=== PATIENT | female | born 2000 | race Caucasian/White ===

== ENCOUNTER 2025-05-03 13:17 | Emergency (ER) | payer BC, OTHER, SELFPAY ==
--- NOTE | ~2025-05-03 | CT_ITS ---
EXAMINATION: CT HEAD WITHOUT CONTRAST CLINICAL INFORMATION: Left facial numbness COMPARISON: None available. TECHNIQUE: Contiguous axial imaging was performed from the skull base to vertex without intravenous administration of contrast. This CT examination was performed using dose optimization techniques as appropriate, variously including the following: *Automated exposure control *Adjustment of mA and/or kV according to patient size (this includes techniques or standardized protocols for targeted exams where dose is matched to indication/reason for exam; i.e. extremities or head) *Use of iterative reconstruction technique DLP: 574 mGY*cm FINDINGS: There is no acute ischemic change. There is no intracranial hemorrhage. There is no mass-effect or midline shift. Basal cisterns and ventricles are within normal limits for age/cerebral volume. Orbits are symmetrical and unremarkable. Paranasal sinuses and mastoid air cells are pneumatized. There are no bony abnormalities. CT/CT head/brain wo IV con IMPRESSION: No acute intracranial abnormality. Electronically signed by: Brennen Sood MD 05/03/2025 03:13 PM EDT
--- NOTE | 2025-05-03 13:23 | ED_ITS ---
HPI - General Adult General Chief complaint: General Medical Stated complaint: states sudden numbness on L side of face Time Seen by Provider: 05/03/25 14:10 Source: patient Mode of arrival: ambulatory Limitations: no limitations History of Present Illness HPI narrative: This is a this is a very pleasant 25 years old the patient presented to the emergency department complaining of left facial numbness symptoms are now resolved of numbness up in about 2 hours ago she is feeling better now she has no headache she is ambulatory to the emergency department. She has no risk factor for cardiovascular disease. She does have history of anxiety disorder Onset (ago): hour(s) (2) Location: face (left) Radiation: non-radiation Severity: mild Pain Consistency: now resolved Relieving factors: none Exacerbating factors: none Associated symptoms: denies other symptoms Related Data Home Medications ?Medication ?Instructions ?Recorded ?Confirmed No Known Home Meds 12/04/21 12/04/21 Allergies Allergy/AdvReac Type Severity Reaction Status Date / Time No Known Allergies Allergy Verified 05/03/25 13:27 Review of Systems 2 Constitutional: Constitutional: Reports no additional constitutional complaints Cardiovascular: Cardiovascular: Reports no additional cardiovascular complaints Gastrointestinal: Gastrointestinal: Reports no additional gastrointestinal complaints Integumentary/Breasts: Skin/Breast: Reports system reviewed and no additional complaints, except as docu [facility] Past Medical History Attestation statement: The following information was validated with the patient. [facility] Narrative: Anxiety disorder Medical History Severe depression RAMIREZ (generalized anxiety disorder) Screening for cervical cancer Physical exam Surgical History No pertinent past surgical history Family History Family History Mother No problems noted. Father Atrial fibrillation Social History Social History Housing: Apartment Alcohol intake: current Alcohol intake frequency: holidays/special occasions only Alcohol type: beer, wine and hard liquor Patient Tobacco Use Status: Never used Tobacco Smoked in Last 30 Days: No e-Cigarette/Vaping Use: Never Used Second Hand Smoke Exposure: No Use of substances other than those prescribed or required for medical reasons: No Advance Directives: No Advance Directives Information Provided: Yes Do you have a plan to hurt others: No Plan service: No Current occupational status: unemployed Current occupational exposures/hazards: No Physical Exam ED Exam Exam: No acute distress Vital Signs: Vital Signs - 24 hr 05/03/25 13:24 05/03/25 14:19 Temperature 98.0 F Pulse Rate 100 95 Respiratory Rate 16 16 Blood Pressure 123/88 124/71 Pulse Oximetry 99 100 Oxygen Delivery Method Room Air Room Air BMI result Body Mass Index 22.3 Const General: cooperative Nutritional Appearance: average body habitus Orientation/consciousness: patient oriented x3 HENMT Head: Yes normal to inspection Ears: hearing grossly normal bilaterally General nose exam: Normal external nose present Face and sinus: Yes normal facial exam Throat: Yes posterior oropharynx normal Neck Neck: Yes normal visual inspection, Yes full ROM and Yes no meningeal signs Chest Chest palpation & inspection: normal inspection of the chest Resp Effort & Inspection: normal respiratory effort Auscultation: clear to auscultation bilaterally Cardio Jugular venous distension: no JVD Rate: regular rate Rhythm: regular rhythm GI Inspection: Yes normal to inspection Palpation (GI): Soft to palpation, not firm and nontender Percussion: Yes normal to percussion Auscultation: normal bowel sounds Skin General skin exam: no rashes or lesions noted and elasticity normal Neuro General: patient oriented x3, Normal light touch and pain sensation and no meningeal signs Cranial nerves: Yes CN's II-XII intact bilaterally Gait exam (Neuro): Normal gait present Coordination: [id number] test normal Romberg Test: Negative NIH Stroke Scale Time: 14:22 Level of Consciousness: Alert Level of Consciousness Questions: Answers both questions correctly Level of Consciousness Commands: Performs both tasks correctly Best Gaze: Normal Visual: No visual loss Facial Palsy: Normal Motor Arm (Right): No drift Motor Arm (Left): No drift Motor Leg (Right): No drift Motor Leg (Left): No drift Limb Ataxia: Absent Sensory: Normal Best Language: No aphasia Dysarthia: Normal Extinction and Inattention: No abnormality Score: 0 Course Course Course Narrative: This is a rapid medical exam performed by Glen Palacios NP: Additional HPI, ROS, PE not included below will be deferred to primary provider. Patient is a 25-year-old with history of anxiety and depression presenting with complaint of fatigue, intermittent blurred vision to right eye, dizziness, left sided tingling worst on face for several weeks. Denies history of migraines but reports headaches recently which feel worse than normal. Plan: EKG, labs Reevaluation(s) Reevaluation #1: On re-examination the patient remained stable, no noted deficit stroke scale is 0. Head CT was negative labs normal lactic she can be discharged home at this point she is comfortable with the plan of care she will follow-up with the primary care physician Time: 15:51 Medical Decision Making Medical Decision Making [facility] Narrative: Patient presented with a left facial numbness which resolved, I do not think she is having a stroke she is neurologically intact at this time she has no risk for cardiovascular disease, her stroke scale is 0 at this time. We will check baseline blood work head CT 15:54 workup is essentially negative head CT is negative she neurologically intact I do not think we need to do for the study I do not think she needs an MRI I do not think she needs a CT angiography of the head and neck overall she is a low risk for cerebrovascular disease she is only 25 years old I think she can be discharged home at this point and follow-up with the primary care physician symptoms are now resolved. Differential Diagnosis Differential Diagnoses: The differential diagnosis associated with the presentation includes Anxiety/TIA Admission/Observation Consideration of admission/observation: Escalation of care including admission/observation considered Lab Data [facility] Lab Attestation statement: I reviewed the patient's lab results. 05/03/25 13:44 05/03/25 13:44 Labs: Lab Results 05/03/25 05/03/25 Range/Units 13:44 14:37 WBC 9.0 (4.8-10.8) X10*3/uL RBC 5.10 (4.20-5.50) X10*6/uL Hgb 14.2 (12.0-16.0) g/dl Hct 42.3 (37.0-47.0) % MCV 82.9 (80.0-98.0) fL MCH 27.8 (27.0-33.0) pg MCHC 33.6 (31.0-35.0) g/dl RDW 13.0 (11.0-16.0) % Plt Count 318 (160-400) X10*3/uL MPV 10.8 (9.4-12.3) fL Immature Gran % (Auto) 0.2 (0.0-0.4) % Neut % (Auto) 64.6 (45-73) % Lymph % (Auto) 27.3 (20-40) % [place] % (Auto) 5.9 (2-11) % Eos % (Auto) 1.3 (0-4) % Baso % (Auto) 0.7 (0-2) % Lymph # (Auto) 2.5 (1.2-4.9) X10*3/uL [place] # (Auto) 0.5 (0.1-1.2) X10*3/uL Eos # (Auto) 0.1 (0.0-0.4) X10*3/uL Baso # (Auto) 0.1 (0.0-0.2) X10*3/uL Abs Immat Gran (auto) 0.02 (0.00-0.03) X10*3/uL Absolute Neuts (auto) 5.8 (2.0-8.3) x10*3/uL Absolute Nucleated RBC 0.000 (0.0-0.012) X10*3/uL Nucleated RBC % (auto) 0.0 (0.0-0.2) /100WBC Sodium 139 (135-145) mmol/L Potassium 3.6 (3.3-5.1) mmol/L Chloride 106 (96-108) mmol/L Carbon Dioxide 26 (22-29) mmol/L Anion Gap 11 L (12-20) BUN 10 (9-16) mg/dL Creatinine 0.72 (0.5-1.4) mg/dL Estim Creat Clear Calc 77.1 Estimated GFR > 60 Random Glucose 104 (60-115) mg/dL Calcium 9.5 (8.4-10.2) mg/dL Magnesium 2.0 (1.6-2.6) mg/dL Total Bilirubin 0.3 (0.0-1.0) mg/dL AST 22 (5-31) U/L ALT 20 (0-31) U/L Alkaline Phosphatase 80 (39-117) U/L Total Protein 7.6 (6.5-8.0) g/dL Albumin 4.8 (3.5-5.0) g/dL TSH 0.93 (0.32-4.0) uIU/mL Urine Test NEGATIVE (NEGATIVE) Independent Interpretation I performed an independent interpretation of an: EKG (Normal sinus rhythm rate [address]-T changes this is a normal EKG) and CT Scan Interpretation: No acute distress Radiology Impression Discussion of test interpretation with radiology: I have reviewed the radiologist's reading. Radiologist Impression: DLP: 574 mGY*cm FINDINGS: There is no acute ischemic change. There is no intracranial hemorrhage. There is no mass-effect or midline shift. Basal cisterns and ventricles are within normal limits for age/cerebral volume. Orbits are symmetrical and unremarkable. Paranasal sinuses and mastoid air cells are pneumatized. There are no bony abnormalities. CT/CT head/brain wo IV con IMPRESSION: No acute intracranial abnormality. Electronically signed by: Brennen Sood MD 05/03/2025 03:13 PM EDT RP Dictated By: Brennen Sood MD Signed By: <Electronically signed by Brennen Sood MD in OV> 05/03/25 1513 DD/ [id number] Discharge Plan Discharge Clinical Impression: Paresthesia Patient Disposition: Home, Self-Care Instructions: Paresthesia (ED) Additional Instructions: Please call your primary care physician and make an appointment, return to the emergency room if feeling worse any concern your CAT scan was normal your blood work was normal Prescriptions: No Action No Known Home Meds Referrals: Physician,None [Primary Care Provider, Medical] - 05/05/25 Print Language: Macedonian
[2025-05-03 13:24] VITALS: BP 123/88; PULSE 100; RESP 16; TEMP 36.7; O2SAT 99; BMI 22.3
--- NOTE | 2025-05-03 13:26 | ECG_ITS ---
Test Reason : DIZZY Blood Pressure : */* mmHG Vent. Rate : 96 BPM Atrial Rate : 96 BPM P-R Int : 162 ms QRS Dur : 74 ms QT Int : 338 ms P-R-T Axes : 78 58 43 degrees QTcB Int : 427 ms Normal sinus rhythm with sinus arrhythmia Possible Left atrial enlargement Septal infarct , age undetermined Abnormal ECG No previous ECGs available Referred By: Debora Palacios Electronically Signed By: Albaro Moreira
[2025-05-03 13:50] LABS: MANUAL DIFF FLAG NO
[2025-05-03 13:57] LABS: Hematocrit 42.3 % (37.0-47.0); Hemoglobin 14.2 g/dl (12.0-16.0); Imm Gran Abs Auto 0.02 X10*3/uL (0.00-0.03); Imm Gran Pct Auto 0.2 % (0.0-0.4); Lymphocytes Absolute Auto 2.5 X10*3/uL (1.2-4.9); Mean Corpuscular HGB Conc 33.6 g/dl (31.0-35.0); Mean Corpuscular Hemoglobin 27.8 pg (27.0-33.0); Mean Corpuscular Volume 82.9 fL (80.0-98.0); NRBC Abs Auto 0.000 X10*3/uL (0.0-0.012); NRBC Pct Auto 0.0 /100WBC (0.0-0.2); Platelet Count 318 X10*3/uL (160-400); Red Blood Count 5.10 X10*6/uL (4.20-5.50); White Blood Count 9.0 X10*3/uL (4.8-10.8)
[2025-05-03 14:15] LABS: Alanine Aminotransferase 20 U/L (0-31); Albumin Level 4.8 g/dL (3.5-5.0); Alkaline Phosphatase 80 U/L (39-117); Anion Gap 11 (12-20); Aspartate Amino Transferase 22 U/L (5-31); Blood Urea Nitrogen 10 mg/dL (9-16); Calcium 9.5 mg/dL (8.4-10.2); Carbon Dioxide 26 mmol/L (22-29); Chloride 106 mmol/L (96-108); Creatinine Clr Calc Pharmacy 77.1; Estimated Glomerular Filt Rate > 60; Magnesium 2.0 mg/dL (1.6-2.6); Potassium 3.6 mmol/L (3.3-5.1); Sodium 139 mmol/L (135-145); Total Protein 7.6 g/dL (6.5-8.0)
[2025-05-03 14:19] VITALS: BP 124/71; PULSE 95; RESP 16; O2SAT 100
--- NOTE | 2025-05-03 14:31 | PC.NURSE ---
Patient presents with intermittent neuro signs since July. States intermittent dizziness, visual disturbances and BARBER, today c/o pin and needles feeling to the left side of her face. No droop noted, Speech clear. Able to ambulate without difficulty. Lungs clear bilat. Respirations even and non-labored. Abdomen soft, non-tender with positive bowel sounds. Positive pedal pulses with no edema. Medical History RAMIREZ (generalized anxiety disorder) Physical exam Screening for cervical cancer Severe depression
--- OUTSIDE RECORDS SUMMARY | 2025-05-03 14:44 | XMS_ITS | Data Portability ---
Author Organization [place] [facility] [place] Felipe johnson[facility] SL [address], [id number] Address [address] [place] [address] Assessment No assessment recorded. Plan of Treatment Reminders Order Date Submit Date Provider Last Modified By Organization Details Last Modified Time Details Appointments WELL WOMAN ESTAB 15 2024 11:30A M Amparo Gloria, TRAPEZE PERFORMER Not available Not available Not available Lab CT + NG RNA, PCR, unspec ified specim en 2023 024 CHRISTOPHE [facility], [address] [place], [address], 08/01/2024 11:56:08 urinal ysis, dipsti ck, auto 2022 023 In-Office Order, Internal Use Only DO Not Attach Compendium DO Not Attach Compendium, Do Not Delete/merge, [id number] 06/23/2023 11:17:53 cultur e, urine 2022 023 [facility], [address] [place], [address], 06/26/2023 09:03:06 urinal ysis, dipsti ck, auto 2022 023 In-Office Order, Internal Use Only DO Not Attach Compendium DO Not Attach Compendium, Do Not Delete/merge, [id number] 06/09/2023 15:53:21 cultur e, urine 2022 023 [facility], [address], [place], [address], 06/12/2023 06:30:15 urinal ysis, dipsti ck, auto 2022 023 [id number] In-Office Order, Internal Use Only DO Not Attach Compendium DO Not Attach Compendium, Do Not Delete/merge, [id number] 05/25/2023 15:23:18 cultur e, urine 2022 023 [email or web address] [place] [facility], [address], [place], [address], 05/27/2023 13:09:21 Referral urolog ist referr al 2022 023 [facility], [address] [place], [address], 06/24/2023 08:20:45 Procedures None record ed. Surgeries None record ed. Imaging None record ed. Medication Orders cefdin ir 300 mg capsul e 2022 023 [facility][id number], [address] [place], [address], 06/23/2023 11:17:55 clotri mazole -betam ethaso ne 1 %-0.05 % topica l cream 2022 023 [facility][id number], [address] [place], [address], 06/09/2023 15:39:27 flucon azole 150 mg tablet 2022 023 [facility][id number], [address] [place], [address], 06/23/2023 10:47:57 Macrob id 100 mg capsul e 2022 023 polibertservi n [facility] #[id number], [address] [place], [address], 06/23/2023 10:48:01 Patient TargetsNo targets recorded. Patient InstructionsNo instructions recorded. Reason for Referral Urologist Referral for Urgen t desire to urinate Referring Physician: Amparo Gloria Gynecology, Encounter Date: 06/23/2023 Results Created Date Observation Date Name Description Value Unit Range Abnormal Flag Note LastModifiedBy Organization Detail LastModifiedTime 05/25/2005/25/2023 urina lysis , dipst ick, auto Unknown Analyte Clean Catch Not Available In-Office Order Internal Use Only DO Not Attach Compendium DO Not Attach Compendium, Do Not Delete/merge, 05/25/2023 09:00:23 05/25/2005/25/2023 urina lysis , dipst ick, auto Unknown Analyte 100 Not Available In-Off ice Order Internal Use Only DO Not Attach Compendium DO Not Attach Compendium, Do Not Delete/merge, 05/25/2023 09:00:23 05/25/2005/25/2023 urina lysis , dipst ick, auto Unknown Analyte Small Not Available In-Off ice Order Internal Use Only DO Not Attach Compendium DO Not Attach Compendium, Do Not Delete/merge, 05/25/2023 09:00:23 05/25/2005/25/2023 urina lysis , dipst ick, auto Unknown Analyte Trace Not Available In-Off ice Order Internal Use Only DO Not Attach Compendium DO Not Attach Compendium, Do Not Delete/merge, 05/25/2023 09:00:23 05/25/2005/25/2023 urina lysis , dipst ick, auto Unknown Analyte 1.010 Not Available In-Off ice Order Internal Use Only DO Not Attach Compendium DO Not Attach Compendium, Do Not Delete/merge, 05/25/2023 09:00:23 05/25/2005/25/2023 urina lysis , dipst ick, auto Unknown Analyte Negati ve Not Available In-Office Order Internal Use Only DO Not Attach Compendium DO Not Attach Compendium, Do Not Delete/merge, [id number] 05/25/2023 09:00:23 05/25/2005/25/2023 urina lysis , dipst ick, auto Unknown Analyte 7.0 Not Available In-Off ice Order Internal Use Only DO Not Attach Compendium DO Not Attach Compendium, Do Not Delete/merge, [id number] 05/25/2023 09:00:23 05/25/2005/25/2023 urina lysis , dipst ick, auto Unknown Analyte 30 Not Available In-Off ice Order Internal Use Only DO Not Attach Compendium DO Not Attach Compendium, Do Not Delete/merge, 05/25/2023 09:00:23 05/25/2005/25/2023 urina lysis , dipst ick, auto Unknown Analyte 1 Not Available In-Off ice Order Internal Use Only DO Not Attach Compendium DO Not Attach Compendium, Do Not Delete/merge, [facility] 05/25/2023 09:00:23 05/25/2005/25/2023 urina lysis , dipst ick, auto Unknown Analyte positi ve Not Available In-Office Order Internal Use Only DO Not Attach Compendium DO Not Attach Compendium, Do Not Delete/merge, 05/25/2023 09:00:23 05/25/2005/25/2023 urina lysis , dipst ick, auto Unknown Analyte Small Not Available In-Off ice Order Internal Use Only DO Not Attach Compendium DO Not Attach Compendium, Do Not Delete/merge, [id number] 05/25/2023 09:00:23 05/26/2005/27/2023 CULTU RE, URINE , ROUTI NE culture, urine, routine SEE NOTE abnormal CULTU RE, URINE , ROUTI NE Micro Numbe r: [id number] Test Statu s: Final Speci men Sourc e: Urine Speci men Quali ty: Adequ ate Resul t: 1,000 -9,00 0 CFU/M L of Group B Strep tococ cus isola brenda Beta- hemol ytic strep tococ ci are predi ctabl y susce ptibl e to Penic illin and other beta- lacta ms. Susce ptibi lity testi ng not routi radha perfo rmed. Pleas e conta ct the labor atory withi n 3 days if susce ptibi lity testi ng is isabela ed. Any amoun t of group B Strep tococ cus in urine speci mens obtai yany from pregn ant femal es is a marke r of genit al tract colon izati on. If this patie nt is pregn ant, pleas e refer to ACOG guide lines for appro priat e scree freda and manag ement of pregn ant women . Comme nt: Eryth romyc in and clind amyci n are not recom joanna d for treat ment of urina ry tract infec tions , but clind amyci n may be usefu l for treat ment of recto vagin al colon izati on or infec tion. Any amoun t of group B Strep tococ cus in urine speci mens obtai yany from pregn ant femal es is a marke r of genit al tract colon izati on. If this patie nt is pregn ant, pleas e refer to ACOG guide lines for appro priat e scree freda and manag ement of pregn ant women . Not Available [facility] [place] [facility] [address], [place], [address], 05/27/2023 13:09:21 06/09/20 23 06/12/2023 CULTU RE, URINE , ROUTI NE culture, urine, routine SEE NOTE abnormal CULTU RE, URINE , ROUTI NE Micro Numbe r: [id number] Test Statu s: Final Speci men Sourc e: Urine Speci men Quali ty: Adequ ate Resul t: Great er than 100,0 00 CFU/m L of Klebs iella pneum oniae K.pne umoni ae ----- ----- ----- - INT CRISTOFER AMOX/ CLAVU LANAT E S <=2 AMPIC ILLIN R 16 AMP/S ULBAC ANDRADE S 4 CEFAZ PHUC NR <=4 2 CEFEP REBEKAH S <=1 CEFTA ZIDIM E S <=1 CEFTR IAXON E S <=1 CIPRO FLOXA KARYN S <=0.2 5 GENTA MICIN S <= 1 IMIPE NEM S <=0.2 5 LEVOF LOXAC IN S <=0.1 2 NITRO FURAN TOIN I 64 PIP/T AZOBA CTAM S <=4 TOBRA MYCIN S <=1 TRIME THOPR IM/IBARRA LFA S <=20 S=Jyoti cepti ble I=Int ermed iate R=Res istan t * = Not Teste d NR = Not Repor brenda NN = See Thera py Comme nts THERA PY COMME NTS Note 1: For infec tions other than uncom plica brenda UTI cause d by E. coli, K. pneum oniae or P. mirab ilis: Cefaz phuc is resis tant if CRISTOFER > or = 8 mcg/m L. (Dist ingui shing susce ptibl e versu s inter media te for isola dylan with CRISTOFER < or = 4 mcg/m L requi res addit ional testi ng.) Note 2: For uncom plica brenda UTI cause d by E. coli, K. pneum oniae or P. mirab ilis: Cefaz phuc is susce ptibl e if CRISTOFER <32 mcg/m L and predi cts susce ptibl e to the oral agent s cefac jae, cefdi faby, cefpo doxim e, cefpr ozil, cefur oxime , cepha lexin and lorac arbef . Not Available [facility] [address], [place], [address], 06/12/2023 20:12:53 06/09/2006/09/2023 urina lysis , dipst ick, auto Unknown Analyte Negati ve Not Available In-Office Order Internal Use Only DO Not Attach Compendium DO Not Attach Compendium, Do Not Delete/merge, 06/09/2023 15:20:19 06/09/2006/09/2023 urina lysis , dipst ick, auto Unknown Analyte Negati ve Not Available In-Office Order Internal Use Only DO Not Attach Compendium DO Not Attach Compendium, Do Not Delete/merge, 06/09/2023 15:20:19 06/09/2006/09/2023 urina lysis , dipst ick, auto Unknown Analyte Negati ve Not Available In-Office Order Internal Use Only DO Not Attach Compendium DO Not Attach Compendium, Do Not Delete/merge, [facility] 06/09/2023 15:20:19 06/09/20 23 06/09/2023 urina lysis , dipst ick, auto Unknown Analyte 1.005 Not Available In-Off ice Order Internal Use Only DO Not Attach Compendium DO Not Attach Compendium, Do Not Delete/merge, [facility] 06/09/2023 15:20:19 06/09/20 23 06/09/2023 urina lysis , dipst ick, auto Unknown Analyte 2+ Not Available In-Off ice Order Internal Use Only DO Not Attach Compendium DO Not Attach Compendium, Do Not Delete/merge, [facility] 06/09/2023 15:20:19 06/09/20 23 06/09/2023 urina lysis , dipst ick, auto Unknown Analyte 7.0 Not Available In-Off ice Order Internal Use Only DO Not Attach Compendium DO Not Attach Compendium, Do Not Delete/merge, [facility] 06/09/2023 15:20:19 06/09/20 23 06/09/2023 urina lysis , dipst ick, auto Unknown Analyte Negati ve Not Available In-Office Order Internal Use Only DO Not Attach Compendium DO Not Attach Compendium, Do Not Delete/merge, [facility] 06/09/2023 15:20:19 06/09/20 23 06/09/2023 urina lysis , dipst ick, auto Unknown Analyte 0.2 Not Available In-Off ice Order Internal Use Only DO Not Attach Compendium DO Not Attach Compendium, Do Not Delete/merge, [facility] 06/09/2023 15:20:19 06/09/20 23 06/09/2023 urina lysis , dipst ick, auto Unknown Analyte negati ve Not Available In-Office Order Internal Use Only DO Not Attach Compendium DO Not Attach Compendium, Do Not Delete/merge, [facility] 06/09/2023 15:20:19 06/09/20 23 06/09/2023 urina lysis , dipst ick, auto Unknown Analyte Negati ve Not Available In-Office Order Internal Use Only DO Not Attach Compendium DO Not Attach Compendium, Do Not Delete/merge, [id number] 06/09/2023 15:20:19 06/09/20 23 06/09/2023 urina lysis , dipst ick, auto Unknown Analyte Yellow Not Available In-Off ice Order Internal Use Only DO Not Attach Compendium DO Not Attach Compendium, Do Not Delete/merge, [id number] 06/09/2023 15:20:19 06/23/20 23 06/26/2023 CULTU RE, URINE , ROUTI NE culture, urine, routine SEE NOTE CULTU RE, URINE , ROUTI NE Micro Numbe r: [id number] Test Statu s: Final Speci men Sourc e: Urine Speci men Quali ty: Adequ ate Resul t: Mixed genit al marilee isola brenda. These super ficia l bacte aj are not indic ative of a urina ry tract infec tion. No furth er organ ism ident ifica tion is warra nted on this speci men. If clini eleuterio indic ated, recol lect clean -catc h, mid-s tream urine and trans shaji immed iatel y to Urine Cultu re Trans port Tube. Not Available [facility] [place] [facility] [address], [place], [address], 06/26/2023 09:03:06 06/23/20 23 06/23/2023 urina lysis , dipst ick, auto Unknown Analyte Clean Catch Not Available In-Office Order Internal Use Only DO Not Attach Compendium DO Not Attach Compendium, Do Not Delete/merge, [id number] 06/22/2023 16:56:33 06/23/20 23 06/23/2023 urina lysis , dipst ick, auto Unknown Analyte 100 Not Available In-Off ice Order Internal Use Only DO Not Attach Compendium DO Not Attach Compendium, Do Not Delete/merge, [id number] 06/22/2023 16:56:33 06/23/20 23 06/23/2023 urina lysis , dipst ick, auto Unknown Analyte Not Available In-Off ice Order Internal Use Only DO Not Attach Compendium DO Not Attach Compendium, Do Not Delete/merge, 06/22/2023 16:56:33 06/23/2006/23/2023 urina lysis , dipst ick, auto Unknown Analyte 1+ Not Available In-Off ice Order Internal Use Only DO Not Attach Compendium DO Not Attach Compendium, Do Not Delete/merge, [id number] 06/22/2023 16:56:33 06/23/2006/23/2023 urina lysis , dipst ick, auto Unknown Analyte Not Available In-Off ice Order Internal Use Only DO Not Attach Compendium DO Not Attach Compendium, Do Not Delete/merge, 06/22/2023 16:56:06/23/2006/23/2023 urina lysis , dipst ick, auto Unknown Analyte 4+ Not Available In-Off ice Order Internal Use Only DO Not Attach Compendium DO Not Attach Compendium, Do Not Delete/merge, [id number] 06/22/2023 16:56:33 06/23/2006/23/2023 urina lysis , dipst ick, auto Unknown Analyte 1.025 Not Available In-Off ice Order Internal Use Only DO Not Attach Compendium DO Not Attach Compendium, Do Not Delete/merge, [id number] 06/22/2023 16:56:33 06/23/2006/23/2023 urina lysis , dipst ick, auto Unknown Analyte Negati ve Not Available In-Office Order Internal Use Only DO Not Attach Compendium DO Not Attach Compendium, Do Not Delete/merge, 06/22/2023 16:56:33 06/23/2006/23/2023 urina lysis , dipst ick, auto Unknown Analyte 5.0 Not Available In-Off ice Order Internal Use Only DO Not Attach Compendium DO Not Attach Compendium, Do Not Delete/merge, 06/22/2023 16:56:33 06/23/2006/23/2023 urina lysis , dipst ick, auto Unknown Analyte Not Available In-Off ice Order Internal Use Only DO Not Attach Compendium DO Not Attach Compendium, Do Not Delete/merge, 06/22/2023 16:56:33 06/23/20 23 06/23/2023 urina lysis , dipst ick, auto Unknown Analyte 2+ Not Available In-Off ice Order Internal Use Only DO Not Attach Compendium DO Not Attach Compendium, Do Not Delete/merge, [facility] 06/22/2023 16:56:33 06/23/20 23 06/23/2023 urina lysis , dipst ick, auto Unknown Analyte 0.2 Not Available In-Off ice Order Internal Use Only DO Not Attach Compendium DO Not Attach Compendium, Do Not Delete/merge, [facility] 06/22/2023 16:56:33 06/23/20 23 06/23/2023 urina lysis , dipst ick, auto Unknown Analyte positi ve Not Available In-Office Order Internal Use Only DO Not Attach Compendium DO Not Attach Compendium, Do Not Delete/merge, [facility] 06/22/2023 16:56:33 06/23/20 23 06/23/2023 urina lysis , dipst ick, auto Unknown Analyte Negati ve Not Available In-Office Order Internal Use Only DO Not Attach Compendium DO Not Attach Compendium, Do Not Delete/merge, [facility] 06/22/2023 16:56:33 07/29/2007/29/2024 CT/NG other info Other Inform ation Not Available [facility] [address], [place], [address], 08/01/2024 11:56:07 07/29/20 24 08/01/2024 CT/NG urogenital,s wab/transpor t tube Uroge nital ,swab /valerio sport tube Not Available [facility] [address], [place], [address], 08/01/2024 11:56:07 07/29/20 24 08/01/2024 CT/NG chlamydia result Negati ve Not Available [facility] [address], [place], [address], 08/01/2024 11:56:07 07/29/20 24 08/01/2024 CT/NG gonorrhea result Negati ve Not Available [facility] [address], [place], [address], 08/01/2024 11:56:07 Result Notes None recorded. Medical Equipment None Reported. Allergies No known drug allergies Medications Name Sig Start Date Stop Date Status Note LastModified by Organization Details LastModified Time fluconazole 150 mg tablet TAKE 1 TABLET BY MOUTH EVERY 72 HOURS 06/23 completed Not Available Not Available Not Available Wellbutrin SR 150 mg tablet, 12 hr sustained-r elease Take 1 tablet twice a day by oral route. 06/23 completed Not Available Not Available Not Available ciprofloxac in 250 mg tablet TAKE 1 TABLET (250 MG TOTAL) BY MOUTH IN THE MORNING AND BEFORE BEDTIME FOR 7 DAYS 07/26 completed Not Available Not Available Not Available sulfamethox azole 800 mg-trimetho prim 160 mg tablet TAKE 1 TABLET BY MOUTH EVERY 12 HOURS FOR 5 DAYS 06/23 completed Not Available Not Available Not Available amoxicillin 500 mg tablet Take 1 tablet every 8 hours by oral route for 5 days. 06/09 completed Not Available Not Available Not Available lamotrigine 25 mg tablet TAKE 1 TABLET BY MOUTH TWICE A DAY 07/29 completed Not Available Not Available Not Available clotrimazol e-betametha sone 1 %-0.05 % topical cream PLEASE SEE ATTACHED FOR DETAILED DIRECTION S 07/26 completed Not Available Not Available Not Available codeine 10 mg-guaifene sin 100 mg/5 mL oral liquid active Not Available Not Available Not Available cefdinir 300 mg capsule TAKE 1 CAPSULE BY MOUTH EVERY 12 HOURS FOR 10 DAYS 07/26 completed Not Available Not Available Not Available aripiprazol e 5 mg tablet 5 mg every day by oral route. 05/25 completed Not Available Not Available Not Available bupropion HCl XL 150 mg 24 hr tablet, extended release TAKE 1 TABLET BY MOUTH EVERY DAY IN THE MORNING active Not Available Not Available No t Available nitrofurant oin monohydrate /macrocryst als 100 mg capsule TAKE 1 CAPSULE BY MOUTH EVERY 12 HOURS FOR 5 DAYS 06/23 completed Not Available Not Available Not Available duloxetine 60 mg capsule,del ayed release 60 mg every day by oral route. 05/25 completed Not Available Not Available Not Available desvenlafax ine succinate ER 50 mg tablet,exte nded release 24 hr TAKE 1 TABLET BY MOUTH EVERY DAY 07/29 completed Not Available Not Available Not Available Latuda 20 mg tablet Take 1 tablet every day by oral route. 06/09 completed Not Available Not Available Not Available Deplin (algal oil) 15 mg-90.314 mg capsule 1 capsule every day by oral route. 05/25 completed Not Available Not Available Not Available desvenlafax ine succinate ER 25 mg tablet,exte nded release 24 hr TAKE 1 TABLET BY MOUTH EVERY DAY IN THE MORNING 07/29 completed Not Available Not Available Not Available Femynor 0.25 mg-35 mcg tablet TAKE 1 TABLET BY MOUTH EVERY DAY 05/25 completed Not Available Not Available Not Available [employer] COVID-19 Antigen Home Test kit FOLLOW INSTRUCTI ONS INCLUDED WITH THE PACKAGE. 06/23 completed Not Available Not Available Not Available Vitals Date Recorded Body height Body mass index (BMI) Body weight Systolic And Diastolic Provider Name and Address Organization Details Last Updated DateTime 05/25/2023 152.4 cm 18.6 kg/m2 93618.28 g 121/80 mm[Hg] [facility] 05/25/2023 15:16:51 Date Recorded Body height Body weight Heart rate Body mass index (BMI) Systolic And Diastolic Provider Name and Address Organization Details Last Updated DateTime 06/09/2023 152.4 cm 23547.28 g 98 /min 18.6 kg/m2 133/92 mm[Hg] Severo rausch [facility] [employer] [facility] [place], [facility] 06/09/2023 15:26:33 Date Recorded Body height Heart rate Body mass index (BMI) Body weight Systolic And Diastolic Provider Name and Address Organization Details Last Updated DateTime 06/23/2023 152.4 cm 121 /min 17.6 kg/m2 27740.31 g 134/81 mm[Hg] Aleida Cartwright [facility] [facility] 06/23/2023 10:54:59 Date Recorded Body height Body mass index (BMI) Body weight Heart rate Systolic And Diastolic Provider Name and Address Organization Details Last Updated DateTime 07/27/2023 152.4 cm 17.2 kg/m2 25641.13 g 83 /min 100/60 mm[Hg] Severo rausch [facility] [facility] 07/27/2023 14:24:27 Date Recorded Body height Heart rate Body mass index (BMI) Body weight Systolic And Diastolic Provider Name and Address Organization Details Last Updated DateTime 07/29/2024 152.4 cm 85 /min 17.2 kg/m2 39349.13 g 111/71 mm[Hg] Aleida Chay [facility] [employer] [facility] [place] 07/29/2024 11:54:34 Social History Question Answer Notes LastModified by Organizat ion Details LastModified Time Tobacco Smoking Status Never Smoker Mayda Potter ([facility] 04/26/2018 10:32:31 Are You Currently Sexually Active With Anyone Who Has Traveled (within The Last 12 Weeks) To A Zika-affected Area? No [email or web address] Information not available 07/27/2023 Are You Blind Or Do You Have Difficulty Seeing? No [email or web address] Information not available 07/27/2023 Is Blood Transfusion Acceptable In An Emergency? Yes Information not available 04/26/2018 What Is Your Level Of Caffeine Consumption? Moderate Information not available 06/22/2023 Are You Deaf Or Do You Have Serious Difficulty Hearing? No [email or web address] Information not available 07/27/2023 What Type Of Diet Are You Following? REGULAR [email or web address] Information not available 07/27/2023 Education 4 Year College [email or web address] Information not available 07/27/2023 How Many Days In The Past Year Have You Had A Heavy Drinking Consumption (4+ Female, 5+ Male)? 0 [email or web address] Information not available 07/27/2023 Have You Had Sexual Relations With Anyone Who Has Been Positively Diagnosed With Zika Virus Within The Last 6 Months? No [email or web address] Information not available 07/27/2023 Illicit Drugs? No Informatio n not available 04/26/2018 History Of Domestic Violence No Information not available 04/26/2018 Caodaism Not Medically Relevant Information not available 04/26/2018 Marital Status Single [email or web address] Informatio n not available 07/27/2023 What Was The Date Of Your Most Recent Tobacco Screening? 07/27/2023 Information not available 07/27/2023 What Is Your Relationship Status? Single Information not available 06/22/2023 Seat Belts Used Routinely Yes [email or web address] Information not available 07/27/2023 Are You Sexually Active? No [place] Information not available 07/27/2023 How Much Tobacco Do You Smoke? No [email or web address] Information not available 07/27/2023 General Stress Level Low [email or web address] Information not available 07/27/2023 Has Tobacco Cessation Counseling Been Provided? No [email or web address] Information not available 07/27/2023 How Many Years Have You Smoked Tobacco? 0 Information not available 04/26/2018 Do You Have Difficulty Walking Or Climbing Stairs? No [email or web address] Information not available 07/27/2023 Sex: Unknown Functional Status Question Answer Note LastModified by Organizat ion Details LastModified Time Do you use any illicit or recreational drugs? No [email or web address] Information not available 07/27/2023 Do you or have you ever used any other forms of tobacco or nicotine? No [email or web address] Information not available 07/27/2023 What is your level of alcohol consumption? None Information not available 04/26/2018 Are you currently employed? Yes Information not available 07/29/2024 Do you have difficulty doing errands alone? No [email or web address] Information not available 07/27/2023 What is your occupation? Home [employer] Information not available 07/29/2024 Do you have difficulty dressing or bathing? No [email or web address] Information not available 07/27/2023 What is your exercise level? Occasional [email or web address] Information not available 07/27/2023 Mental Status Question Answer Note LastModified by Organization D etails LastModified Time Do you have difficulty concentrating, remembering or making decisions? No [email or web address] Information no t available 07/27/2023 Family History Relationship Description Onset Age of this Age Resolved Age Notes LastModified by Organization Details LastModified Time Maternal Aunt Malignant tumor of breast 52 Differ ent aunt for breast and pancre as agilbertservi n Not available 07/29/2024 11:49:55 Maternal Aunt Osteoporosis 56 agilb ertservi n Not available 07/29/2024 11:49:55 Maternal Aunt Malignant tumor of pancreas 49 [employer]ilbertservi n Not available 07/29/2024 11:49:55 Maternal Grandmother Diabetes mellitus 73 agilbertservi n Not available 07/29/2024 11:49:55 Father Cerebrovascu lar accident 58 [employer]ilbertservi n Not available 07/29/2024 11:49:55 Father Heart disease 58 agilbertservi n Not available 07/29/2024 11:49:55 Father Malignant neoplasm of skin [employer]ilbertservi n Not available 07/29/2024 11:49:55 Father Malignant melanoma of skin iperdomodiaz Not available 14:21:29 Maternal Uncle Malignant neoplasm of brain [employer]ilbertservi n Not available 07/29/2024 11:49:55 Notes:Mother had genetic dylan ting and was neg. Medical History Condition Response Neurology- Memory Loss/Dementia N Neurology- Stroke/TIA N Dermatology-Acne N Cancer- Genetic Screening N Endocrinology- Vitamin Deficiency N Endocrinology-Other N Hematology-Anemia N Cardiology- Atrial fib/atrial flutter N Nephrology-Renal Disease N Neurology- Seizures/Epilepsy N Cardiology- Heart Attack N Ortho-Fractures N Reviewed with no changes Y Neurology- Neuropathy N Endocrinology- Prolactinoma N Urology- Recurrent Urinary Tract Infecti ons N Pulmonary- Seasonal Allergies/Allergic R hinitis N Psych- PMS/PMDD N Pulmonary-Other N Pulmonary- Lung Disease N Endocrinology- Glucose Intolerance/Insul in Resistance N Psych- Anxiety Disorder Y GI- Reflux/Ulcers N Rheumatology-Arthritis N ID-Chicken Pox/Shingles N Cancer- Skin N GI- Irritable Bowel Syndrome N Cardiology- Heart Disease N ID-HIV N GI- Colon Polyps N Endocrinology- Osteopenia N Endocrinology- Elevated Prolactin N ID-Other N Psych- Eating Disorder N Ortho- Arthritis N Urology- Urinary Incontinence N Hematology-Blood Transfusion N Pulmonary- Asthma N Urology- Hematuria (Blood in Urine) N Pulmonary- Sleep Apnea N Neurology- Dementia N Urology- Interstitial Cystitis N Endocrinology- Hypothyroidism N Eyes-other N Neurology- Multiple Sclerosis N GI- Hemorrhoids N Neurology-Other N ID- Rheumatic Fever N Hematology-Blood Clotting Disorder/Facto r V Leiden N Endocrinology- Osteoporosis N Psych- Depression Y Hematology-Other N Do you have any current or past medical conditions? N Ortho-Chronic Back Pain N ID- Tuberculosis/Positive PPD N Dermatology-Other N Dermatology-Eczema/Psoriasis N Rheumatology-Autoimmune Disease N Cardiology- High Cholesterol N Cancer- Ovary N Cardiology- Heart Arrhythmia N Urology- Kidney or Bladder Problems N Psych- Mental Disorder N Psych-other N Hematology-DVT/Pulmonary Embolism N Endocrinology- Hyperthyroidism N Endocrinology- Thyroid Problems N Ortho-other N Other infectious diseases N Cancer- Breast N Psych- ADD N ID- Herpes N GI- Liver Disease/Hepatitis N Weight Management/Obesity N Cancer- Colon N ENT- Hearing Loss N Cancer- Vulvar N Cancer- Vaginal N GI-Other N Neurology- Headaches/Migraines N Hematology-Bleeding Disorder N Endocrinology- Diabetes N Cancer- Cervical N No diseases or conditions N Pulmonary- COPD/Emphysema N GI- Vitamin Deficiency N GI- Crohn's/Ulcerative Colitis N Endocrinology- History of Gestational Di abetes N Psych- Bipolar Disease N ENT- Seasonal Allergies/Allergic Rhiniti s N Cardiology- High Blood Pressure N Cancer- Lung N Cancer- Endometrial/Uterine N Eyes- Glaucoma N Urology- Kidney Disease N Eyes- Vision Loss/Macular Degeneration N ENT-Other N Rheumatology-Other N Cardiac- Aneurysm N Urology- Kidney Infection N Cardiology- Heart Murmur/Mitral Valve Pr olapse N Urology- Stones N ID-MRSA N Cancer-Other N GI- Gallbladder Disease N Gynecological History Statement/Question Response Date of Last Mammogram Date of LMP 07/04/2024 HPV Test Not applicable Age at Menarche 13 Post Menopausal Hormone Use Never Sexual orientation Bisexual History of Cervical Dysplasia N History of Endometriosis N Sexually active No Current Control Method: Abstinence Date of Last Colonoscopy History of Sexually Transmitted Infectio n N History of Infertility N Date of last bone density HPV Vaccine Completed History of abnormal PAP N Date of Last Pap Smear History of Recurrent Ovarian Cyst N History of PCOS N History of Fibroids N History of Vulvar Dysplasia N Obstetrics History GPAL:G 0 P 0 0 0 0 Immunizations Vaccine Type Date Status Note Provider Aaron snyder and Address Organization Details Recorded Time MMR 1 completed Aleida Cartwright [facility] 06/23/2023 10:47:44 HPV, quadrivalent 6 completed Aleida mcdonald [facility] 06/23/2023 10:47:44 HPV, quadrivalent 7 completed Aleida Gilbert null, [facility], [facility] 06/23/2023 10:47:44 Hep B, unspecified formulation 1 completed Aleida Gilbert null, [facility], [facility] 06/23/2023 10:47:44 Hep B, unspecified formulation 0 completed Aleida Gilbert null, [facility], [facility] 06/23/2023 10:47:44 Tdap 2 completed Aleida Gilbert null, [facility], [facility] 06/23/2023 10:47:44 meningococcal ACWY, unspecified formulation 2 completed Aleida Gilbert null, [facility], [facility] 06/23/2023 10:47:44 meningococcal ACWY, unspecified formulation 8 completed Aleida Gilbert null, [facility], [facility] 06/23/2023 10:47:44 varicella 2 completed Aleida Gilbert null, [facility], [facility] 06/23/2023 10:47:44 MMR 5 completed Aleida Gilbert null, [facility], [facility] 06/23/2023 10:47:44 meningococcal B, recombinant 8 completed Not Available [facility] 07/27/2023 14:18:10 HPV9 7 completed Not Available [facility] 07/27/2023 14:18:10 HPV9 6 completed Not Available [facility] 07/27/2023 14:18:10 IPV 2 completed Not Available [facility] 07/27/2023 14:18:10 IPV 4 completed Not Available [facility] 07/27/2023 14:18:10 IPV 0 completed Not Available [facility] 07/27/2023 14:18:10 IPV 0 completed Not Available [facility] 07/27/2023 14:18:10 pneumococcal polysaccharide PPV23 1 completed Not Available [facility] 07/27/2023 14:18:10 pneumococcal polysaccharide PPV23 0 completed Not Available [facility] 07/27/2023 14:18:10 pneumococcal polysaccharide PPV23 1 completed Not Available [facility] 07/27/2023 14:18:10 pneumococcal polysaccharide PPV23 0 completed Not Available [facility] 07/27/2023 14:18:10 varicella 2 completed Aleida Gilbert null, [facility], [facility] 06/23/2023 10:47:44 varicella 2 completed Aleida Gilbert null, [facility], [facility] 06/23/2023 10:47:44 HPV, quadrivalent 6 completed Aleida Gilbert null, [facility], [facility] 06/23/2023 10:47:44 Hep B, adult 0 completed Not Available [facility] 07/27/2023 14:18:10 Hep B, adult 1 completed Not Available [facility] 07/27/2023 14:18:10 Hep B, adult 0 completed Not Available [facility] 07/27/2023 14:18:10 Hib (PRP-OMP) 2 completed Not Available [facility] 07/27/2023 14:18:10 Hib (PRP-OMP) 1 completed Not Available [facility] 07/27/2023 14:18:10 Hib (PRP-OMP) 0 completed Not Available [facility] 07/27/2023 14:18:10 Hib (PRP-OMP) 0 completed Not Available [facility] 07/27/2023 14:18:10 meningococcal MCV4P 2 completed Not Available [facility] 07/27/2023 14:18:10 meningococcal MCV4P 8 completed Not Available [facility] 07/27/2023 14:18:10 DTaP, 5 pertussis antigens 1 completed Not Available [facility] 07/27/2023 14:18:10 DTaP, 5 pertussis antigens 2 completed Not Available [facility] 07/27/2023 14:18:10 DTaP, 5 pertussis antigens 4 completed Not Available [facility] 07/27/2023 14:18:10 DTaP, 5 pertussis antigens 0 completed Not Available [facility] 07/27/2023 14:18:10 DTaP, 5 pertussis antigens 0 completed Not Available [facility] 07/27/2023 14:18:10 Past Encounters Encounter ID Performer Location Encounter Start Date Encounter Closed Date Diagnosis/Indication Diagnosis SNOMED-CT Code Diagnosis ICD10 Code Diagnosis Note [id number] Leila Ramirez MD [address] [address] 04/26/2018 10:23:16 04/26/2018 11:53:48 Irregular periods 63429682 N92.6 [id number] Amparo Gloria APRN [address] [address] 06/03/2018 10:55:02 06/03/2018 11:54:32 Polycystic ovaries 54373648 E28.2 Pt educated about risks/ benefits/ and danger signs with hormonal contracept ivana. Pt does not smoke, and has NO PMH of cardiac, kidney, or liver problems, denies migraines or hx of blood clots. Reviewed consent form with pt and obtained consent to initiate therapy. Education was provided about other methods as well. Pt advised of the need to take pill every day at the same time. Can begin today as she is not sexually active. Advised to use back up preg prevention x 1 month after begining if she plans to become sexually active. Pt advised to f/u with any side effects or changes in health.Pt had cholestero l and other routine labs previously which her PCP is following. Encouraged healthy diet choices and exercise. [id number] Leila Ramirez MD [address] [address] 05/25/2023 14:58:30 05/25/2023 15:29:48 Urinary symptoms [id number] R39.9 Pt advised to drink ample water, avoid holding urine. Pt to f/u if symptoms worsen or do not improve. To complete full course of antibiotic s. [id number] LeilaMD ÁNGELA Barrow_NAMRATA BARRIOS [address] [address] 06/09/2023 15:10:02 06/09/2023 15:46:13 Urgent desire to urinate [id number] R39.15 Reviewed prior urine cx- GBS pos. Will recheck cx and call if needs abx.If cx neg and sxs continue after yeast tx, will need pelvic exam next time. Pt agreeable to plan. Burning se nsation of vagina 228472745 R20.8 Pt educated about avoiding bubble bathes, fragranced soaps, and douching. Encouraged cotton underwear and daily probiotic. [id number] MD ÁNGELA Hung_NAMRATA BARRIOS [address] [address] 06/23/2023 10:40:16 06/23/2023 11:14:33 Urgent desire to urinate [id number] R39.15 Acute, complicate d. 3rd UTI in 1 month (GBS, then K. Pneumoniae ). Will check cx and refer to uro. Pt advised to drink ample water, avoid holding urine. Pt to f/u if symptoms worsen or do not improve. To complete full course of antibiotic s. Will try longer course of Cefdinir while waiting to get in with uro. Unable to send uribel due to interactio ns with buproprion . Pt to continue Azo x 3 days. Pt not sexually active, pediatric speculum used for exam and tolerated fairly well, with anxiety. [id number] MD ARNOLDO Hung [address] [address] 07/27/2023 14:17:27 07/27/2023 14:37:03 Gynecologic examination [id number] Z01.419 Reviewed ACOG and ASCCP recommenda tions for OFFSET PROOF PRESS OPERATOR exams and pap smears, and role in cervical and other types of OFFSET PROOF PRESS OPERATOR cancer detection. Never sexually active, pelvic exam deferred. [id number] MD ARNOLDO Hung [address] [address] 07/29/2024 11:47:08 07/29/2024 12:19:06 Gynecologic examination [id number] Z01.419 Z11.3 Reviewed ACOG and ASCCP recommenda tions for OFFSET PROOF PRESS OPERATOR exams and pap smears, and role in cervical and other types of OFFSET PROOF PRESS OPERATOR cancer detection. Never sexually active, attempted pelvic exam but pt unable to tolerate small speculum. Posterior hymen seems to still be intact. Able to insert swab for STI screening without difficulty . Gender dysphoria 1410164 9 F64.9 Pt interested in transition ing. Dr. Blackmon's informatio n given to pt. Currently not a candidate for IUD insertion due to inability to tolerate pelvic exam. Would need to consider Depo for contracept ion if she becomes sexually active with biological male. Health Concerns Section Related Observation LastModified by Organization Detai ls LastModified Time None Recorded Concern Status LastModified by Organization Details LastModified Time None Recorded Advance Directives Directive None Recorded Payers Insurance Date Sequence Insurance Name Policy Number Policy Cronin Covered Member ID Cronin Member ID Guarantor Name 07/14/2024 1 [place] [id number] Felice Curry [id number] [employer] Curry 01/05/2025 1 [employer] [facility] BENEFITS PLAN - OPEN ACCESS PLUS Felice Brookscott [id number] [employer]ile[employer] Brookscott 01/05/2025 2 [facility] BENEFITS PLAN - OPEN ACCESS PLUS Felice Brookscott [id number] [employer] Brookscott 01/05/2025 2 [employer] [id number] Felice Brookscott [id number] [employer] Brookscott 01/05/2025 2 [employer] (PPO) [id number] Yamilex Brookscott [id number] Yamilex Brookscott 01/05/2025 2 [place] [id number] Luis Curry [id number] Yamilex Curry Notes Date Note Type Note Provider Name and Address Organization Details Recorded Time 05/25/2023 text/html 05/25/23 Pt prese nts today for dysuria, urinary urgency and frequency present x 1 week. No complaints of vaginal bleeding, odor, itching, or other related problems. She stopped taking Azo yesterday. AMPARO GLORIA, TRAPEZE PERFORMER [address], [address], [place], [address], [facility] [employer] 05/25/2023 15:27:45 06/09/2023 text/html 06/09/23 Patient returns today for continued urinary sxs/vaginal irritation after being tx for UTI on 05/28/23 with amoxicillin (initially started Macrobid but cx showed GBS). She also took fluconazole x 2 doses, last dose Thursday. Symptoms improved initially but then returned on Thursday night - urinary frequency and some burning when urine contacts skin. Pt declines exam today, not sexually active and is very uncomfortable with removing clothing today. AMPARO GLORIA APRN [address], [address], [place], [address], [facility] [employer] [facility] [employer] 06/09/2023 16:03:50 06/23/2023 text/html 06/23/23 Patient returns today for continued UTI sxs. This is her third visit in 1 month. She was tx for GBS in urine on 05/28/23 as she was symptomatic. Urine was then cultured again on 06/09/23 and showed K pneumoniae. She returns today with dysuria, urgency, and frequency. UA notes +1 bili, 4+ ketones, 2+ protein, and nitrite positive. She is not sexually active. AMPARO GLORIA APRN [address], [address], [place], [address], [facility] [employer] 06/23/2023 11:18:56 07/27/2023 text/html 07/27/23 Pt presents today for WWE. Doing well, has no complaints or concerns at this time. Pt advised that we will communicate with the web portal for all screening labs and pap results. Pt saw uro and sxs improved after another round of abx (pt reports multiple bacteria on Urine cx afer in-office UA was neg). AMPARO GLORIA APRN [address], [address], [place], [address], [facility] [employer] 07/27/2023 14:38:10 07/29/2024 text/html 07/29/24 Pt presents today for WWE. Doing well, has no complaints or concerns at this time. Pt advised that we will communicate with the web portal for all screening labs and results. AMPARO GLORIA, TRAPEZE PERFORMER [address], [address], [place], [address], [facility], [facility] 07/29/2024 12:21:38 OBGyn Episode No OBEpisode recorded.
--- OUTSIDE RECORDS SUMMARY | 2025-05-03 14:44 | XMS_ITS | Clinical Summary ---
Author Organization [facility] Address [address] [place] [address] Phone Care Team Providers Care Machine Splitter Name Role Phone Pcp, Unknown Primary Care Provider Unavailabl e Allergies No known active allergies Medications ARIPiprazole (ABILIFY) 5 MG tablet Take 5 mg by mouth daily. Active DULoxetine (CYMBALTA) 60 MG capsule Take 60 mg by mouth daily. Active buPROPion (WELLBUTRIN XL) 150 MG ER 24 hr tablet Take 150 mg by mouth daily. Active L-methylfolate 15 mg Tab Take 15 mg by mouth daily. Active norgestimate-eth inyl estradiol (ORTHO-CYCLEN) 0.25-0.035 mg per tablet Take 1 tablet by mouth daily. Active Social History Tobacco Use Types Packs/Day Years Used Date Smoking Tobacco: Never Smokeless Tobacco: Never Alcohol Use Standard Drinks/Week Comments No 0 (1 standard drink = 0.6 oz pur e alcohol) Child or Family Care Answer Date Record ed Do you have problems with on e of the following making it difficult for you to work, study, or receive health care? No 12/16/2024 Education Answer Date Recorded Are you interested in help w ith more adult education (for example, completing high school, GED, job training, learning the Irish language, technical skills, or developing parenting skills)? No 12/16/2024 Are you concerned about learning? Not on file 12/16/2024 No 12/16/2024 Yes 12/16/2024 Food Answer Date Recorded Within the past 6 months we worried whether our food would run out before we got money to buy more. Never True 12/16/2024 Within the past 6 months the food we bought just didn't last and we didn't have enough money to get more. Never True Residential Stability Answer Date Recor ded What is your housing situation today? I have yimi funez 12/16/2024 How many times have you moved in the past 12 mon ths? One time 12/16/2024 Paying for Meds Answer Date Recorded Do you have trouble paying for medicines? No 12/16/2024 Paying Utility Bills Answer Date Record ed Do you have trouble paying your heating or elect ricity bill? No 12/16/2024 Transportation Answer Date Recorded Has the lack of transportati on kept you from medical appointments or from getting medications? No 12/16/2024 Unemployment Answer Date Recorded Are you currently unemployed or working on a part-time or temporary basis, and looking for work? No 12/16/2024 Digital Access Answer Date Recorded No 12/16/2024 Yes 12/16/2024 Do you have reliable internet access at home? Ye s 12/16/2024 Do you have a device (e.g., phone, tablet, computer) with a working camera? Yes 12/16/2024 Intimate Partner Violence Answer Date R ecorded Denied Basic Needs Not on file 12/16/2024 In the past 12 months have y ou been in a relationship with a person who hurts, threatens, or tries to control you? No 12/16/2024 Worried food would run out Not on file 12/16 In the past 12 months have y ou been in a relationship with a person who hurts, threatens, or tries to control you? No 12/16/2024 Comments Unknown Sex and Gender Information Value Date Recorded Sex Assigned at Female 11/10/2024 4:52 PM EST Legal Sex Female 12:29 PM EDT Gender Identity Male 11/10/2024 4:53 PM EST Sexual Orientation Choose not to disclose 2024 4:53 PM EST Last Filed Vital Signs Vital Sign Reading Time Taken Comments Blood Pressure 113/77 08/10/2018 7:35 AM EDT Pulse 75 08/10/2018 7:35 AM EDT Temperature 36.7 C (98.1 F) 08/10/2018 7:35 AM EDT Respiratory Rate 16 08/10/2018 7:35 AM EDT Oxygen Saturation 96% 08/10/2018 7:35 AM EDT Inhaled Oxygen Concentration - - Weight 54.4 kg (120 lb) 08/09/2018 1:29 PM EDT Height 149.9 cm (4' 11 ) 08/09/2018 1:29 PM EDT Body Mass Index 24.24 08/09/2018 1:29 PM EDT Plan of Treatment Upcoming Encounters Date Type Department Care Team (Late st Contact Info) Description 07/31/2025 1:45 PM EDT Office Visit [facility] [address] [place] [address] [id number] Jose Guadalupe Valencia MD [address] [place] [phone] [email or web address] Health Maintenance Due Date Last Done Comments Adult Td,Tdap Booster 2000 SMOKING Hx and SMOKELESS TOB ACCO SCREENING 2013 HPV VACCINES (1 - 3-dose series) 2015 HEPATITIS C SCREENING 2018 HIV ONE-TIME SCREENING (18-6 5 YEARS) 2018 PAP SMEAR 2021 COVID-19 VACCINE (2 - 2023-2 5 season) 2024 01/29/2021 DEPRESSION SCREENING 12/16/2025 12/16/2024 HEPATITIS A VACCINES Aged Out No long er eligible based on patient's age to complete this topic HIB VACCINES Aged Out No longer eligi ble based on patient's age to complete this topic MENINGOCOCCAL VACCINES (ACWY) Aged Out No longer eligible based on patient's age to complete this topic MENINGOCOCCAL VACCINES (B) Aged Out N o longer eligible based on patient's age to complete this topic PNEUMOCOCCAL VACCINES (0-49 years) Aged Out No longer eligible based on patient's age to complete this topic Medical Devices Not on file Insurance [facility] OUT OF STATE PPO CIGNA PPO PPO CIGNA PPO PPO [employer]NA PPO PPO OUT STATE PPO [employer]IG[employer] PPO PPO CIGNA PPO PPO [facility] PPO PPO CIGNA PPO Care Teams Machine Splitter Relationship Specialty Start Date End Date Pcp, Unknown PCP - General 11/10/24 Additional Source Comments The information contained in this document represents components of the legal health record. It is not the complete legal health record.[facility]
[2025-05-03 14:50] LABS: UPreg QC Valid YES
[2025-05-03 16:10] VITALS: BP 124/71; PULSE 95; RESP 16; TEMP 36.7; O2SAT 100
== END 2025-05-03 16:11 | disposition home or self-care (01) ==
PROVIDERS: Registered Nurse Emergency; Emergency Provider Emergency Medicine
DX: R20.2 Paresthesia of skin (principal); R20.0 Anesthesia of skin; I49.8 Other specified cardiac arrhythmias; R42 Dizziness and giddiness; Z79.899 Other long term (current) drug therapy
CPT/HCPCS: 36415; 70450; 80053; 81025; 83735; 84443; 85025; 93005; 99284

== ENCOUNTER → 2025-05-03 13:26 | Outpatient (BNV) | payer BC, OTHER, SELFPAY | PROVIDERS: Emergency Provider Emergency Medicine; Visit Provider Internal Medicine Cardiovascular Disease | DX: R94.31 Abnormal electrocardiogram [ECG] [EKG] (principal); I49.9 Cardiac arrhythmia, unspecified | CPT/HCPCS: 93010 ==

== ENCOUNTER → 2025-05-03 14:14 | Outpatient (BNV) | payer BC, OTHER, SELFPAY | PROVIDERS: Emergency Provider Emergency Medicine; Visit Provider Radiology Diagnostic Radiology | DX: R20.2 Paresthesia of skin (principal) | CPT/HCPCS: 70450 ==